=== PATIENT | male | born 1970 | race Caucasian/White ===

== ENCOUNTER 2025-05-22 09:56 | Emergency (ER) | payer BC ==
[2025-05-22 10:47] LABS: #Basophils Less than 0.03 10x3/uL (0.0-0.2); #Eosinophils 0.06 10x3/uL (0.0-0.5); #Monocytes 0.69 10x3/uL (0.0-1.1); #Neutrophils 6.28 10x3/uL (1.5-8.4); %Basophils 0.2 % (0.0-2.0); %Eosinophils 0.7 % (0.0-6.0); %Lymphocytes 12.2 % (18.0-47.0); %Monocytes 8.6 % (0.0-10.0); %Neutrophils 78.2 % (40.0-75.0); Hematocrit 46.4 % (38.8-50.0); Hemoglobin 16.3 g/dL (13.5-17.5); Mean Corpuscular Hemoglobin 30.5 pg (27.0-33.0); Mean Corpuscular Volume 86.9 fL (81.2-95.1); Platelet Count 269 10x3/uL (150-450); Red Blood Cell (RBC) Count 5.34 10x6/uL (4.32-5.72); White Blood Cell (WBC) Count 8.04 10x3/uL (3.5-10.5)
[2025-05-22 11:00] LABS: Anion Gap 15 mmol/L (10-20); BUN (Urea Nitrogen) 10 mg/dL (8.4-25.7); Calc. Creatinine Clearance 0 mL/min (70-130); Calcium 9.7 mg/dL (7.8-10.44); Carbon Dioxide 25 mmol/L (22-29); Chloride 94 mmol/L (98-107); Glucose 99 mg/dL (70-105); Potassium 3.6 mmol/L (3.5-5.1); Sodium 130 mmol/L (136-145)
[2025-05-22 11:04] LABS: Troponin I Less than 0.010 ng/mL (< 0.028)
== END 2025-05-22 12:16 | disposition home or self-care (01) ==
LOC: CSHERS 09:56
DX: I11.9 Hypertensive heart disease without heart failure (principal); Z79.899 Other long term (current) drug therapy
CPT/HCPCS: 71045; 80048; 84443; 84484; 85025; 93005